=== PATIENT | male | born 1950 | race Caucasian/White ===

== ENCOUNTER 2021-01-02 06:25 | Outpatient (CLI) | payer MEDICARE ==
[~2021-01-02] VITALS: Ht 185.5 cm; Wt 84.1 kg
[2021-01-02] MEDS ORDERED: PRIM50TA33 PO (15:16)
[2021-01-02] MEDS ORDERED: ASPI-479 PO (15:16)
[2021-01-11] MEDS ORDERED: oxyCODONE/APAP 5/325MG (PERCOCET 5) TABLET PO PRN (07:30)
== END 2021-01-02 17:52 | disposition home or self-care (01) ==
LOC: PREOP 06:25
PROVIDERS: ATTEND Orthopaedic Surgery
DX: Z01.818 Encounter for other preprocedural examination (principal)

== ENCOUNTER 2021-01-11 07:39 | Day surgery (SDC) | payer MEDICARE ==
--- NOTE | 2021-01-10 07:35 | HISTORY AND PHYSICAL ---
DATE OF SERVICE: ADMISSION HISTORY AND PHYSICAL This will be for outpatient surgery on 01/11/2021 for right shoulder Bankart repair. HISTORY OF PRESENT ILLNESS: The patient is a 70-year-old right hand dominant gentleman, who fell on 11/24/2020 to his right upper extremity. This resulted in a traumatic dislocation. He reports that prior to this, he had no shoulder problems. Subsequent to that, he saw a physician and on exam his shoulder dislocated at that point. He then dislocated the third time when raises arm at the side. He has undergone an MRI, which showed no full thickness rotator cuff tear, but did show a large anterior labral tear. Due to functional instability, the patient elected to proceed with surgical intervention. REVIEW OF SYSTEMS: No chest pain, no shortness of breath, no dysuria. PAST MEDICAL HISTORY: Significant for colon polyps, benign prostatic hypertrophy, dysuria, COPD, hyperlipidemia, arrhythmia and tremors. PAST SURGICAL HISTORY: Cervical spine, sinus, left knee arthroscopy, appendectomy, colonoscopy, bowel resection and abdominal aneurysm. FAMILY HISTORY: Significant for breast cancer, coronary artery disease. MEDICATIONS: Primidone and aspirin. ALLERGIES: SULFA. SOCIAL HISTORY: The patient is a former smoker with a [id number] history. Denies alcohol use. PHYSICAL EXAMINATION: GENERAL: The patient is well-developed, well-nourished, in no acute distress. HEENT: Normocephalic, atraumatic. Pupils are equal, round and reactive to light. Oropharynx is clear. NECK: Supple, no lymphadenopathy. LUNGS: Clear to auscultation bilaterally. HEART: Regular rate and rhythm. ABDOMEN: Soft, nontender, nondistended. EXTREMITIES: Right shoulder demonstrates intact sensation throughout his right upper extremity. He has symmetric pulses. He has intact deltoid function. IMPRESSION: Right shoulder traumatic instability with Bankart tear. PLAN: Right shoulder arthroscopic Bankart repair. The risks, benefits, options, ramifications and recovery were discussed at length with the patient. He understands and wishes to proceed. Job ID: [id number] DocumentID: [id number] Dictated Date: 12/30/2020 10:24:43 Bundle Shaker Date: 12/30/2020 10:48:42 Dictated By: HERO CEE MD
[~2021-01-11] VITALS: Ht 185.5 cm; Wt 84.1 kg
[2021-01-11] VITALS (13 sets, daily range): BP systolic 127–149; BP diastolic 74–93
[~2021-01-11 07:39] MED LIST: ASPI-479 PO; PRIM50TA33 PO; oxyCODONE/APAP 5/325MG (PERCOCET 5) TABLET PO PRN
[2021-01-11] MEDS ORDERED: LACTATED RINGERS 1,000 ML IV PRN (08:15)
[2021-01-11] MEDS ORDERED: ceFAZolin INJECTION 1,000 MG in WATER (STERILE) FOR INJECTION 10 ML IV ONE (08:15)
[2021-01-11] MEDS ORDERED: proPOfol 200 MG/20 ML (DIPRIVAN) VIAL IV ONE (08:46)
[2021-01-11] MEDS ORDERED: LIDOCAINE PF 2% 5 ML (XYLOCAINE) VIAL ONE (08:46)
[2021-01-11] MEDS ORDERED: BUPIVACAINE 0.25% 30 ML (SENSORCAINE) VIAL ONE ×2 (08:46→09:01)
[2021-01-11] MEDS ORDERED: SEVOFLURANE (ULTANE) 15 ML INHAL SOLN ONE ×2 (08:46→10:30)
[2021-01-11] MEDS ORDERED: fentaNYL INJ 100 MCG/2 ML AMP ONE (08:46)
[2021-01-11] MEDS ORDERED: ROCURONIUM 10 MG/ML 5 ML SYRINGE IV ONE (08:46)
[2021-01-11] MEDS ORDERED: morphine PF (DURAMORPH) 10 MG/10 ML AMP ONE (08:46)
[2021-01-11] MEDS ORDERED: MIDAZOLAM 2 MG/2 ML (VERSED) VIAL ONE (08:47)
--- NOTE | 2021-01-11 09:16 | Progress Note-Pre Operative ---
Pre-Operative Progress Note H&P Reviewed The H&P was reviewed, patient examined and no changes noted. Date Seen by Provider: Jan 11, 2021 Time Seen by Provider: 09:05 Date H&P Reviewed: Jan 11, 2021 Time H&P Reviewed: 07:11 Pre-Operative Diagnosis: right shoulder Bankart tear HERO CEE MD Jan 11, 2021 09:16
--- NOTE | 2021-01-11 09:17 | Progress Note-Post Operative ---
Post-Operative Progess Note Surgeon (s)/Development Educator (s) Surgeon HERO CEE MD Development Educator: Jerald Talavera Pre-Operative Diagnosis right shoulder Bankart tear Post-Operative Diagnosis right shoulder Bankart tear Procedure & Operative Findings Date of Procedure 01/11/21 Procedure Performed/Findings right shoulder arthroscopic Bankart repair Anesthesia Type GETA Estimated Blood Loss Estimated blood loss (mL): minimal Specimens/Packing Specimens Removed none Packing: none HERO CEE MD Jan 11, 2021 09:17
[2021-01-11] MEDS ORDERED: GLYCOPYRROLATE 0.2 MG/ML (ROBINUL) 2 ML VIAL ONE (09:42)
--- NOTE | 2021-01-11 10:54 | Anesthesia-General Post-Op ---
General Patient Condition Mental Status/LOC: Same as Preop Cardiovascular: Satisfactory Nausea/Vomiting: Absent Respiratory: Satisfactory Pain: Controlled Complications: Absent Post Op Complications Complications None Follow Up Care/Instructions Patient Instructions None needed. Anesthesia/Patient Condition Patient Condition Patient is doing well, no complaints, stable vital signs, no apparent adverse anesthesia problems. No complications reported per nursing. JANET DODSON CRNA Jan 11, 2021 10:54
[2021-01-11] MEDS ORDERED: HYDROmorphone 2 MG/ML VIAL (DILAUDID) IV ONE (11:00)
[2021-01-11] MEDS ORDERED: fentaNYL INJ 100 MCG/2 ML AMP IVP ONE (11:00)
[2021-01-11] MEDS ORDERED: morphine INJ 10 MG/ML 1ML (SYR OR VIAL) IVP ONE (11:00)
[2021-01-11] MEDS ORDERED: PROMETHAZINE INJ 25 MG/ML (PHENERGAN) AMP IVP ONE (11:00)
[2021-01-11] MEDS ORDERED: ONDANSETRON 4 MG/2 ML (SDV) Z0FRAN IVP PRN (11:00)
[2021-01-11] MEDS ORDERED: MEPERIDINE (DEMEROL) INJ 50 MG/ML IVP ONE (11:00)
[2021-01-11] MEDS ORDERED: morphine INJ 10 MG/ML 1ML (SYR OR VIAL) ONE (11:11)
--- NOTE | 2021-01-11 16:22 | OPERATIVE REPORT ---
DATE OF SERVICE: 01/11/2021 PREOPERATIVE DIAGNOSIS: Right shoulder Bankart tear. POSTOPERATIVE DIAGNOSIS: Right shoulder Bankart tear. PROCEDURE: Right shoulder Bankart repair. SURGEON: Danielito Cee MD FOOD ORDER DELIVERY RUNNER: Jerald Talavera, who assisted throughout the procedure and closed the incisions. ANESTHESIA: General endotracheal by Quinton Loza CRNA. ESTIMATED BLOOD LOSS: Minimal. DRAINS: None. COMPLICATIONS: None. POSTOPERATIVE PLAN: No therapy for 2 weeks, then 0 to 90 degrees of passive forward elevation for 4 weeks. External rotation to neutral to 4 weeks and internal rotation to neutral for 4 weeks, then progressive increased active and active assisted to full motion with full external rotation, held off until 8 weeks postoperatively. STATEMENT OF MEDICAL NECESSITY: The patient is a 70-year-old right hand dominant gentleman, who sustained two traumatic anterior dislocations of the right shoulder. An MR arthrogram was obtained, which revealed a large anterior Bankart tear. No rotator cuff tearing was noted. The patient was counseled regarding treatment options, but had functional instability with activities of daily living. Because of this, I elected to proceed with surgical intervention. Examination under anesthesia revealed forward elevation of 170 degrees, external rotation of 80 degrees, internal rotation of 70 degrees. He had increased anterior translation on the right versus left, inferior and posterior were symmetric. Arthroscopic findings, the rotator cuff was intact throughout. The anterior labrum was absent from the 1 to 5 o'clock positions. The subscapularis was intact. The biceps anchor was intact. DESCRIPTION OF PROCEDURE: After risks and benefits of procedure were discussed and questions were answered, an informed consent was signed and placed on chart, the operative site was confirmed in the preoperative holding area initialed by the surgeon. The patient was then transferred to the operating room after adequate levels of general endotracheal anesthetic were obtained, a timeout was called, confirming the operative site. Examination under anesthesia was performed with above findings noted. The patient was carefully placed in left lateral decubitus position, being careful to place an axillary roll and pad all bony prominences. The right shoulder and upper extremity were prepped and draped in the usual sterile fashion. A 15 pounds of traction was applied with the arm in 30 degrees of abduction, 10 degrees forward elevation. The shoulder joint was injected with 20 mL fluid. Standard posterior portal was placed under direct visualization. An anterior portal was created in the interval between biceps, subscapularis and glenoid. A rasp was used to try to elevate any anterior capsule on the glenoid neck. This tissue was extremely friable. At the most inferior aspect, there was adequate tissue that could be mobilized superiorly. Therefore, an anchor was placed at approximately the 4 o'clock position that this tissue was brought anterior superiorly with a good repair obtained. A second anchor was attempted at the 3 o'clock position, but the tissue was friable and would not hold suture. Tissue continued to try to be mobilized, but it was friable and was unable to be grasped and advanced. This left a defect anteriorly from the 4 to 1 o'clock positions. The shoulder joint was copiously irrigated. Port sites were closed with 4-0 nylon in septic fashion. Shoulder was injected with Duramorph. The portal sites were infiltrated with plain Marcaine. A soft dressing and sling were applied. The patient was transferred to the recovery room awake and in stable condition. Job ID: [id number] DocumentID: [id number] Dictated Date: 01/11/2021 10:49:23 Blueprinter Date: 01/11/2021 16:21:51 Dictated By: DANIELITO CEE MD
== END 2021-01-11 14:35 | disposition home or self-care (01) ==
LOC: SDC 07:39
PROVIDERS: ATTEND Orthopaedic Surgery
DX: S43.431A Superior glenoid labrum lesion of right shoulder, initial encounter (principal); I10 Essential (primary) hypertension; N40.0 Benign prostatic hyperplasia without lower urinary tract symptoms; J44.9 Chronic obstructive pulmonary disease, unspecified; E78.5 Hyperlipidemia, unspecified; Z79.82 Long term (current) use of aspirin; Z79.899 Other long term (current) drug therapy
CPT/HCPCS: 29807; 87081; C1713